=== PATIENT | male | born 1950 | race Caucasian/White ===

== ENCOUNTER 2019-03-25 17:03 | Inpatient (IN) | payer MEDICARE ==
[~2019-03-25] VITALS: Ht 182.9 cm; Wt 110.2 kg
--- NOTE | 2019-03-25 17:12 | NUR ---
PT IS A/OX4, BIB [id number] FROM [facility], C/O RESPIRATORY DISTRESS. PT BROUGHT IN BY RA ON BIPAP FOR RESPIRATORY SUPPORT. PT IS HYPOXIC, TACHYCARDIC, AND TACHYPNIC. PT SWITCHED TO HOSPITAL BIPAP PER ER MD ORDER. PT WAS ADMIN 1 SPRAY OF NITROGLYCERIN AND ALBUTEROL NEBU BY [facility] IN THE FIELD INTERACTIVE ACCOUNT MANAGER. 18G IV ACCESS IN RFA AND 20G IV ACCESS IN LAC IN PLACE BY [facility]. ER MD AT BEDSIDE FOR MSE.
--- NOTE | 2019-03-25 17:15 | NUR ---
Pt placed on BIPAP per MD orders. Pt placed on BIPAP 14/5, Rate-16, FIO2-100% Pt tolerating BIPAP settings well. BIPAP alarm parameters checked, on and audible. Will continue to monitor.
[2019-03-25] MEDS ORDERED: DILTIAZEM HCL 25 MG IV ONE (17:22)
[2019-03-25 17:26] LABS: BASOPHILS # (AUTO) 0.2 K/uL (0.0-8.0); EOSINOPHILS # (AUTO) 0.4 K/uL (0.0-0.7); EOSINOPHILS % (AUTO) 2.2 % (0.0-7.0); HEMATOCRIT 44.9 % (36.7-47.1); HEMOGLOBIN 14.6 g/dL (12.5-16.3); LYMPHOCYTES # (AUTO) 7.8 K/uL (20.0-40.0); LYMPHOCYTES % (AUTO) 42.5 % (20.5-51.5); MEAN CORPUSCULAR HEMOGLOBIN 28.9 uug (23.8-33.4); MEAN CORPUSCULAR HGB CONC 33 g/dL (32.5-36.3); MEAN CORPUSCULAR VOLUME 89.1 fL (73.0-96.2); MONOCYTES # (AUTO) 1.6 K/uL (2.0-10.0); MONOCYTES % (AUTO) 8.8 % (0.0-11.0); NEUTROPHILS # (AUTO) 8.3 K/uL (1.8-8.9); NEUTROPHILS % (AUTO) 45.5 % (38.5-71.5); PLATELET COUNT (AUTO) 281 K/uL (152-348); RED BLOOD CELL COUNT(AUTO) 5.04 MIL/uL (4.06-5.63); WHITE BLOOD COUNT (AUTO) 18.3 K/uL (3.6-10.2)
[2019-03-25 17:28] LABS: ABG BASE EXCESS -12.2 mmol/L; ABG PCO2 44.4 mmHg (35.0-45.0); ABG PH 7.174 (7.350-7.450); ABG PO2 121.9 mmHg (75.0-100.0); ABG SITE RIGHT RADIAL; ABG TOTAL HEMOGLOBIN 15.3 G/dL (13.5-18.0); COHb 4.6 % (0.5-1.5); MetHb 0.3 % (0.0-1.5); O2Hb 92.7 % (94.0-97.0); VENT MODE BIPAP
--- NOTE | 2019-03-25 17:29 | NUR ---
pt unable to provide past medical hx and med list at this point.
[2019-03-25] MEDS ORDERED: DILTIAZEM HCL 25 MG IV IV ONE (17:30)
[2019-03-25 17:32] LABS: CREATININE 1.7 mg/dL (0.6-1.3); POTASSIUM 3.9 mmol/L (3.5-5.1)
[2019-03-25 17:43] LABS: BILIRUBIN,DIRECT 0.2 mg/dL (0.0-0.2); BILIRUBIN,TOTAL 0.6 mg/dL (0.2-1.0); TOTAL PROTEIN, SERUM 7.2 g/dL (6.4-8.2)
--- NOTE | 2019-03-25 17:43 | NUR ---
pt wrote on a piece of paper that he takes 2 med for htn, 2 for cholesterol, diuretic and blood sugar. unable to provide moredetails at this point.
[2019-03-25] MEDS ORDERED: IV NORMAL SALINE 1000 ML BAG IV ONE ×2 (17:45→18:45)
[2019-03-25] MEDS: CEFTRIAXONE 1 G in IV DEXTROSE 5% 50 ML IV ONE ×2 (18:00→18:37)
[2019-03-25] MEDS ORDERED: IV NORMAL SALINE 250 ML IV ONE (18:00)
[2019-03-25] MEDS ORDERED: ASPIRIN 81 MG TAB.CHEW PO ONE (18:00)
[2019-03-25] MEDS ORDERED: IOHEXOL 350 100 ML INFUS..BTL ONE (18:00)
[2019-03-25] MEDS ORDERED: SWABABLE VALVE TRANSFER SET EA MC ONE (18:00)
[2019-03-25] MEDS ORDERED: ASPIRIN 300 MG RECTAL SUPP RC ONE (18:00)
[2019-03-25] MEDS ORDERED: ASPIRIN 81 MG TAB.CHEW ONE (18:01)
[2019-03-25] MEDS ORDERED: CEFTRIAXONE 1 G VIAL ONE (18:07)
[2019-03-25] MEDS ORDERED: INSULIN REGULAR, HUMAN 300 UNIT/3 ML VIAL ONE (18:10)
[2019-03-25] MEDS ORDERED: INSULIN REGULAR, HUMAN 300 UNIT/3 ML VIAL SQ ONE (18:15)
[2019-03-25] MEDS ORDERED: AZITHROMYCIN IV 500 MG in IV DEXTROSE 5% 250 ML IV ONE (18:45)
[2019-03-25] MEDS ORDERED: IV NORMAL SALINE 500 ML BAG IV ONE (18:45)
--- NOTE | 2019-03-25 19:01 | NUR ---
SHIFT REPORT GIVEN TO VANCE Headley RN.
--- NOTE | 2019-03-25 19:03 | NUR ---
ER SPEAKING W/ MD FROM [facility] RE PT'S ADMISSION.
[2019-03-25] MEDS ORDERED: AZITHROMYCIN 500 MG VIAL IV ONE (19:12)
--- NOTE | 2019-03-25 20:48 | NUR ---
Pt accepted for admission to CCU by Luis[facility], diagnosis Respiratory Failure.
--- NOTE | 2019-03-25 20:59 | NUR ---
Report given to Josselyn HAIRSPRING ASSEMBLER.
[2019-03-25] MEDS ORDERED: Z GUARD REMEDY PASTE 57 GM TUBE TOP PRN (21:15)
[2019-03-25] MEDS ORDERED: HYDROCODONE/APAP 5-325MG TABLET PO PRN (21:15)
[2019-03-25] MEDS ORDERED: ALBUTEROL SULFATE 1.25 MG/3 ML NEBU NEB PRN (21:15)
[2019-03-25] MEDS ORDERED: ACETAMINOPHEN 325 MG TABLET PO PRN (21:15)
[2019-03-25] MEDS ORDERED: ONDANSETRON 4 MG/2 ML VIAL IV PRN (21:15)
[2019-03-25] MEDS ORDERED: ZOLPIDEM 5 MG TABLET PO PRN (21:15)
[2019-03-25] MEDS ORDERED: DEXTROSE 50% 50 ML DISP.SYRIN IV PRN (21:15)
[2019-03-25] MEDS ORDERED: MAGNESIUM HYDROXIDE 30 ML LIQUID UDC PO PRN (21:15)
[2019-03-25] MEDS ORDERED: MORPHINE SULFATE 2 MG/1 ML DISP.SYRIN IV PRN (21:15)
[2019-03-25 21:29] VITALS: BP 92/65
--- NOTE | 2019-03-25 21:30 | NUR ---
ADMITTED PT ALERT & ORIENTED X3 FROM ER VIA [facility] W/ ADMITTING DX OF CHF, RESP FAILURE. PLACED ON BIPAP W/ SETTING OF IPAP-12/EPAP-5, RATE-16, FIO2 0F 100% W/ O2 SAT OF 100%. HEP LOCK INTACT & PATENT ON RFA & LAC. SOB NOTED ON INCREASED OF ACTIVITY. PLACED HOB HIGHLY ELEVATED.
[2019-03-25 22:00] VITALS: BP 96/55
[2019-03-25 22:30] VITALS: BP 91/58
--- NOTE | 2019-03-25 22:52 | NUR ---
ACCUCHECK DONE BS -269, COVERED W/ REGULAR INSULIN 6 UNITS SUBCU.
[2019-03-25] MEDS: INSULIN REGULAR, HUMAN 300 UNITS/3 ML VIAL SQ PRN (22:57)
[2019-03-25 23:00] VITALS: BP 82/56
[2019-03-26] VITALS (63 sets, daily range): BP systolic 56–144; BP diastolic 23–92
[2019-03-26 00:34] LABS: ABG BASE EXCESS -6.9 mmol/L; ABG HCO3 18.1 mmol/L; ABG PCO2 35.2 mmHg (35.0-45.0); ABG PO2 253.6 mmHg (75.0-100.0); ABG SITE RIGHT RADIAL; ABG TOTAL HEMOGLOBIN 15.4 G/dL (13.5-18.0); COHb 0.8 % (0.5-1.5); MetHb 0.2 % (0.0-1.5); O2Hb 98.6 % (94.0-97.0); VENT MODE BIPAP
[2019-03-26] MEDS ORDERED: NOREPINEPHRINE BITARTRATE 4 MG/4 ML VIAL IV ONE (02:16)
[2019-03-26] MEDS: NOREPINEPHRINE BITARTRATE 8 MG in IV DEXTROSE 5% 500 ML IV PRN (02:26)
--- NOTE | 2019-03-26 02:26 | NUR ---
LEVOPHED DRIP STARTED @ 5MCQ/MIN ON RFA IV SITE, BP-72/55.
--- NOTE | 2019-03-26 04:00 | NUR ---
AM CARE DONE. SOB NOTED ON INCREASED OF ACTIVITY.
[2019-03-26 05:23] LABS: BASOPHILS % (AUTO) 0.2 % (0.0-2.0); EOSINOPHILS % (AUTO) 0.1 % (0.0-7.0); HEMOGLOBIN 14.7 g/dL (12.5-16.3); LYMPHOCYTES # (AUTO) 1.6 K/uL (20.0-40.0); MEAN CORPUSCULAR HEMOGLOBIN 29.1 uug (23.8-33.4); MEAN CORPUSCULAR HGB CONC 33 g/dL (32.5-36.3); MEAN CORPUSCULAR VOLUME 87.4 fL (73.0-96.2); MONOCYTES # (AUTO) 1.7 K/uL (2.0-10.0); MONOCYTES % (AUTO) 8.5 % (0.0-11.0); NEUTROPHILS # (AUTO) 16.5 K/uL (1.8-8.9); NEUTROPHILS % (AUTO) 83.2 % (38.5-71.5); PLATELET COUNT (AUTO) 295 K/uL (152-348); RED BLOOD CELL COUNT(AUTO) 5.03 MIL/uL (4.06-5.63); WHITE BLOOD COUNT (AUTO) 19.9 K/uL (3.6-10.2)
[2019-03-26 05:31] LABS: BILIRUBIN,TOTAL 0.4 mg/dL (0.2-1.0); CREATININE 1.3 mg/dL (0.6-1.3); MAGNESIUM 2.2 mg/dL (1.8-2.4); PHOSPHOROUS 4.5 mg/dL (2.5-4.9); POTASSIUM 5.6 mmol/L (3.5-5.1); TOTAL PROTEIN, SERUM 7.1 g/dL (6.4-8.2)
[2019-03-26 05:36] LABS: THYROID STIMULATING HORMONE 1.571 mIU/mL (0.358-3.740)
--- NOTE | 2019-03-26 06:00 | NUR ---
REMAINS ON BIPAP. ON LEVOPHED DRIP @ 8MCQ/MIN.
--- NOTE | 2019-03-26 07:00 | NUR ---
recieved pt. from offgoing r.n. dx. resp. failure,c.h.f., sepsis, p.n.a. 68 yr. old male. on bi-pap machine. lying in bed with h.o.b. elevated 35 degrees. v.s.s. afebrile. asleep. arouses easily. alert. oriented times three. follows simple commands. speech clear. denies chest pains or dyspnea.V.S.S. saturation w.n.l.
[2019-03-26] MEDS: PANTOPRAZOLE SODIUM 40 MG TABLET.DR PO SCH (07:12)
[2019-03-26] MEDS: BLOOD SUGAR DIAGNOSTIC 1 EACH STRIP VI SCH ×4 (07:30→21:32)
--- NOTE | 2019-03-26 07:45 | NUR ---
RECEIVED PT ON CONTINUOUS BIPAP IPAP 15 EPAP 5 FIO2 80%. PT AWAKE AND COOPERATIVE. TOLERATING BIPAP AT THIS TIME. WILL CONTINUE TO MONITOR. NO DISTRESS NOTED.
[2019-03-26] MEDS: IPRATROPIUM BROMIDE 0.5 MG/2.5 ML NEBU NEB SCH ×5 (08:45→23:43)
[2019-03-26 09:15] LABS: ABG BASE EXCESS -6.6 mmol/L; ABG HCO3 16.2 mmol/L; ABG PCO2 26.4 mmHg (35.0-45.0); ABG PH 7.407 (7.350-7.450); ABG PO2 78.2 mmHg (75.0-100.0); ABG SITE RIGHT BRACHIAL; ABG TOTAL HEMOGLOBIN 15.1 G/dL (13.5-18.0); COHb 1.1 % (0.5-1.5); MetHb 0.2 % (0.0-1.5); O2Hb 94.8 % (94.0-97.0); VENT MODE BIPAP
--- NOTE | 2019-03-26 12:10 | NUR ---
dr. rendon called re; troponin, 0.185. stated, " I saw that ".
--- NOTE | 2019-03-26 12:30 | NUR ---
jeana tang inserted p.i.c.c. line to rt. arm. pt. tolerated procedure well. stat port. c.x.r. was ordered. " o.k. to use p.i.c.c. line, " as per cecilia orders.
[2019-03-26] MEDS: ASPIRIN 81 MG TAB.CHEW PO SCH (13:47)
[2019-03-26] MEDS: FUROSEMIDE 40 MG/4 ML VIAL IV SCH ×2 (13:48→21:26)
[2019-03-26] MEDS: INSULIN REGULAR, HUMAN 300 UNIT/3 ML VIAL SQ PRN ×2 (14:57→19:26)
[2019-03-26] MEDS: ATORVASTATIN 40 MG TABLET PO SCH ×2 (16:18→21:26)
[2019-03-26] MEDS ORDERED: CEFTRIAXONE 1 G in IV DEXTROSE 5% 50 ML IV SCH (19:00)
[2019-03-26] MEDS ORDERED: IV NORMAL SALINE 250 ML IV PRN (19:45)
[2019-03-26] MEDS ORDERED: AZITHROMYCIN IV 500 MG in IV DEXTROSE 5% 250 ML IV SCH (20:00)
[2019-03-26] MEDS ORDERED: ALBUTEROL SULFATE 1.25 MG/3 ML NEBU NEB SCH (21:15)
[2019-03-26] MEDS: INSULIN REGULAR, HUMAN 300 UNITS/3 ML VIAL SQ PRN (21:34)
[2019-03-27] VITALS (55 sets, daily range): BP systolic 62–137; BP diastolic 19–97
[2019-03-27] MEDS ORDERED: NOREPINEPHRINE BITARTRATE 4 MG/4 ML VIAL IV ONE (02:41)
[2019-03-27] MEDS: NOREPINEPHRINE BITARTRATE 8 MG in IV DEXTROSE 5% 500 ML IV PRN ×2 (02:42→16:35)
[2019-03-27] MEDS: IPRATROPIUM BROMIDE 0.5 MG/2.5 ML NEBU NEB SCH ×6 (03:07→23:23)
[2019-03-27 04:58] LABS: BASOPHILS # (AUTO) 0.1 K/uL (0.0-8.0); BASOPHILS % (AUTO) 0.2 % (0.0-2.0); HEMATOCRIT 41.2 % (36.7-47.1); HEMOGLOBIN 13.5 g/dL (12.5-16.3); LYMPHOCYTES # (AUTO) 1.7 K/uL (20.0-40.0); LYMPHOCYTES % (AUTO) 7.6 % (20.5-51.5); MEAN CORPUSCULAR HEMOGLOBIN 28.6 uug (23.8-33.4); MEAN CORPUSCULAR HGB CONC 33 g/dL (32.5-36.3); MEAN CORPUSCULAR VOLUME 87.5 fL (73.0-96.2); MONOCYTES # (AUTO) 2.3 K/uL (2.0-10.0); NEUTROPHILS # (AUTO) 18.9 K/uL (1.8-8.9); NEUTROPHILS % (AUTO) 82.2 % (38.5-71.5); PLATELET COUNT (AUTO) 236 K/uL (152-348); RED BLOOD CELL COUNT(AUTO) 4.71 MIL/uL (4.06-5.63)
[2019-03-27 05:12] LABS: CREATININE 1.2 mg/dL (0.6-1.3); PHOSPHOROUS 2.7 mg/dL (2.5-4.9); POTASSIUM 4.6 mmol/L (3.5-5.1)
[2019-03-27 05:30] LABS: BAND % (MANUAL) 5 % (0-10); EOSINOPHILS % (MANUAL) 1 % (0-8); LYMPHOCYTES % (MANUAL) 6 % (20-40); MONOCYTES % (MANUAL) 10 % (2-10); NEUTROPHILS % (MANUAL) 78 % (42-75)
[2019-03-27] MEDS ORDERED: METOLAZONE 5 MG TABLET PO ONE (08:15)
[2019-03-27] MEDS: BLOOD SUGAR DIAGNOSTIC 1 EACH STRIP VI SCH ×4 (08:22→21:19)
[2019-03-27 08:36] LABS: ABG PCO2 29.6 mmHg (35.0-45.0); ABG PH 7.426 (7.350-7.450); ABG PO2 95.3 mmHg (75.0-100.0); ABG SITE RIGHT RADIAL; ABG TOTAL HEMOGLOBIN 14.3 G/dL (13.5-18.0); COHb 1.2 % (0.5-1.5); MetHb 0.2 % (0.0-1.5); O2Hb 96.1 % (94.0-97.0); VENT MODE BIPAP; VT, ABG 1020 mL
[2019-03-27] MEDS: INSULIN REGULAR, HUMAN 300 UNIT/3 ML VIAL SQ PRN ×3 (08:41→17:37)
[2019-03-27] MEDS: ASPIRIN 81 MG TAB.CHEW PO SCH (08:54)
[2019-03-27] MEDS: FUROSEMIDE 40 MG/4 ML VIAL IV SCH ×3 (08:54→21:29)
[2019-03-27] MEDS: PANTOPRAZOLE SODIUM 40 MG TABLET.DR PO SCH (08:55)
--- NOTE | 2019-03-27 09:32 | NUR ---
CLINICAL PHARMACY NOTE:VANCOMYCIN DOSIN Request for vancomycin dosing on 68 y/o male 182.88 cm 110.2 kg for pneumonia temp 97.9 BUN 28 Scr 1.2 WBC 23 bands 5 also started on Zosyn Start vancomycin 1500mg ivpb [id number] estimated trough 15.8. Will order trough level prior to 4th dose. Will continue to monitor
[2019-03-27 10:17] LABS: *BILIRUBIN,URIN NEGATIVE (NEGATIVE); *BLOOD, URINE NEGATIVE (NEGATIVE); *CLARITY,URINE CLEAR (CLEAR); *COLOR,URINE YELLOW (YELLOW); *KETONES,URINE TRACE (NEGATIVE); *UROBILINOGEN,URINE 0.2 E.U./dl (NORMAL); LEUKOCYTE ESTERASE ,URINE NEGATIVE (NEGATIVE); NITRITE, URINE NEGATIVE (NEGATIVE); PH,URINE 5.5 (5.0-8.0); UGLUCOSE NEGATIVE (NEGATIVE)
[2019-03-27] MEDS: VANCOMYCIN IV 1,500 MG in IV DEXTROSE 5% 500 ML IV SCH ×2 (10:21→23:56)
[2019-03-27 10:26] LABS: MUCUS,URINE MODERATE /LPF (0-FEW); SQUAMOUS EPITHELIAL CELL,UR NONE SEEN /HPF (NONE SEEN)
[2019-03-27 10:27] LABS: BACTERIA,URINE FEW /HPF (NONE SEEN); RBC,URINE 0-3 /HPF (0-3); WBC,URINE 0-3 /HPF (0-3)
--- NOTE | 2019-03-27 11:00 | NUR ---
SEEN AND EXAMINED BY DR GREENWOOD AND DR MUNOZ WITH NEWORDERS.
[2019-03-27] MEDS ORDERED: PIPERACILLIN/TAZOBACTAM/D5W 50 ML IV SCH (12:00)
[2019-03-27] MEDS: PIPERACILLIN/TAZOBACTAM/D5W 3.375 G in PREMIXED 1 EACH IV SCH ×2 (12:41→20:21)
[2019-03-27] MEDS ORDERED: MIDAZOLAM HCL 2 MG/2 ML VIAL IV PRN (13:00)
--- NOTE | 2019-03-27 13:10 | NUR ---
PT WAS EXPLAINED BY MD THE NEED FOR INTUBATION AT THIS TIME. PT AGREED. INTUBATED BY DR BLAS WITH GOOD SUCCESS. [id number] 4MG ANDSUCS 100MG SLOW IVP GIVEN ORDERED FOR THE INTUBATION.
[2019-03-27] MEDS ORDERED: AMIODARONE HCL IV 150 MG in IV DEXTROSE 5% 100 ML IV ONE (13:30)
[2019-03-27] MEDS: PROPOFOL 100 ML IV PRN ×4 (13:30→21:13)
[2019-03-27] MEDS ORDERED: AMIODARONE HCL IV 900 MG in IV DEXTROSE 5% 482 ML IV PRN ×2 (13:30→13:45)
--- NOTE | 2019-03-27 13:30 | NUR ---
PROPOFOL DRIP STARTED AT 50MCG/MIN ORDERED FOR SEDATION.
[2019-03-27] MEDS ORDERED: MORPHINE SULFATE 4 MG/1 ML DISP.SYRIN IV PRN (13:45)
--- NOTE | 2019-03-27 14:00 | NUR ---
HR WENT UO 160B/MIN. AFIB.DR MUNOZ CARDIOVERTED PT WITH 150JOULES. STILL AFIB FAST RESPONSE. STARTED ON AMIODARONE DRIP AT 1MCG.MIN WITH A BOLUS OF 150MG SLOW IVPAS ORDERED. VENT SETTING OF AC-18, CHZ8625%, PEEP-8, VT-600. PCXR DONE POST INTUBATION.
[2019-03-27 14:11] LABS: ABG BASE EXCESS -9.3 mmol/L; ABG PCO2 50.4 mmHg (35.0-45.0); ABG PH 7.194 (7.350-7.450); ABG PO2 102.8 mmHg (75.0-100.0); ABG SITE LEFT BRACHIAL; ABG TOTAL HEMOGLOBIN 14.4 G/dL (13.5-18.0); COHb 1.5 % (0.5-1.5); MetHb 0.2 % (0.0-1.5); O2Hb 95.2 % (94.0-97.0); VENT MODE VENT - A/C; VT, ABG 600 mL
--- NOTE | 2019-03-27 14:30 | NUR ---
LASIX 80MG SLOW IVP GIVEN ORDERED. INSERTED A FOLEYCATHETER FR16 WITHOUT ANY DIFFICULTIES. DRAINING DARK EDY URINE.
[2019-03-27] MEDS ORDERED: HEPARIN/D5W DRIP 500 ML IV PRN (15:15)
[2019-03-27] MEDS ORDERED: HEPARIN SODIUM,PORCINE 5,000 UNITS/ML VIAL IV PRN (15:30)
[2019-03-27] MEDS ORDERED: HEPARIN SODIUM,PORCINE 5,000 UNITS/ML VIAL IV ONE (15:30)
--- NOTE | 2019-03-27 15:30 | NUR ---
NOTIFIED DR GREENWOOD WITH ABG RESULT POST INTUBATION. VENT CANGES ORDERS AC-24, PEEP-10, VT-650, FIO2-80%. O2SAT IS 100%
[2019-03-27] MEDS: HEPARIN/D5W DRIP 500 ML IV PRN (16:38)
[2019-03-27] MEDS ORDERED: SUCCINYLCHOLINE CHLORIDE 200 MG/10 ML VIAL MC ONE (17:00)
--- NOTE | 2019-03-27 17:00 | NUR ---
HEPARIN BOLUS 5,OOOU GIVEN SLOW IVP ORDERED. FOLLOWED BU HEPARIN DRIP AT 1200UNITS VIA PICC LINE ORDERED. PT IS SEDATED BUT AROUSABLE.
--- NOTE | 2019-03-27 18:14 | NUR ---
PT IS DOING WELL ON BIPAP VENT SATURATING 99% AND TOLERATING HIS BRATHING TREATMENTS WELL. ATTEMPTED TO WEAN OF FROM BIPAP BUT PATIENT REFUSED AND SAID THAT HE CAN'T BREATH. DR. GREENWOOD CAME I AND SAW THE PATIENTS CONDITION AND DECIDED TO INTUBATE THE PATIENT DUE TO HIS HEART CONDITION. HE WAS INTUBATED WITH ET TUBE 7.5, SECURED AT 23 CM AT MID LIP. PLACED ON VENT MARQUEZ WITH SETTINGS OF AC 18, VT 600, PEEP 8 AND FIO2 100%. ABG WAS DRAWN POST ONE HOUR AND RESULT WAS CALLED BY YUSUF SCHUMACHER TO DR. GREENWOOD. HE GAVE NEW ORDERS: AC 24, VT 650, PEEP 10 AND O2 80%.
[2019-03-27] MEDS: ATORVASTATIN 40 MG TABLET PO SCH (21:00)
[2019-03-27] MEDS: INSULIN REGULAR, HUMAN 300 UNITS/3 ML VIAL SQ PRN (21:22)
[2019-03-27] MEDS: NOREPINEPHRINE BITARTRATE 16 MG in IV DEXTROSE 5% 500 ML IV PRN (22:01)
--- NOTE | 2019-03-27 23:20 | NUR ---
Noted Heparin 5,400 units / Heparin protocol: duplicate order.
[2019-03-27] MEDS ORDERED: HEPARIN SODIUM,PORCINE 10,000 UNITS/10 ML VIAL IVP ONE (23:30)
--- NOTE | 2019-03-27 23:31 | NUR ---
Patient was received orally intubated on mechanical ventilation. He is on the Mendoza ventilator with ordered vent settings of AC 24, vt 650, +10, 80% fIO2. 7.5 Ettube, ~23cm lipline. He tolerated inline treatments well, no adverse reactions noted. Suctioned small amounts of pink tinged secretions. Oral care rendered without complications. Alarms assessed and are on/audible. Will continue to monitor throughout shift.
[2019-03-28] VITALS (72 sets, daily range): BP systolic 87–134; BP diastolic 58–103
[2019-03-28] MEDS: PROPOFOL 100 ML IV PRN ×5 (02:10→18:15)
[2019-03-28] MEDS: PIPERACILLIN/TAZOBACTAM/D5W 3.375 G in PREMIXED 1 EACH IV SCH ×2 (03:16→12:15)
[2019-03-28] MEDS: IPRATROPIUM BROMIDE 0.5 MG/2.5 ML NEBU NEB SCH ×4 (03:22→15:28)
[2019-03-28 05:20] LABS: BASOPHILS # (AUTO) 0.2 K/uL (0.0-8.0); BASOPHILS % (AUTO) 0.7 % (0.0-2.0); EOSINOPHILS % (AUTO) 0.1 % (0.0-7.0); HEMATOCRIT 38.5 % (36.7-47.1); HEMOGLOBIN 12.8 g/dL (12.5-16.3); LYMPHOCYTES # (AUTO) 1.9 K/uL (20.0-40.0); LYMPHOCYTES % (AUTO) 8.9 % (20.5-51.5); MEAN CORPUSCULAR HEMOGLOBIN 28.9 uug (23.8-33.4); MEAN CORPUSCULAR HGB CONC 33 g/dL (32.5-36.3); MEAN CORPUSCULAR VOLUME 86.8 fL (73.0-96.2); MONOCYTES # (AUTO) 1.8 K/uL (2.0-10.0); MONOCYTES % (AUTO) 8.6 % (0.0-11.0); NEUTROPHILS # (AUTO) 17.4 K/uL (1.8-8.9); NEUTROPHILS % (AUTO) 81.7 % (38.5-71.5); PLATELET COUNT (AUTO) 196 K/uL (152-348); RED BLOOD CELL COUNT(AUTO) 4.43 MIL/uL (4.06-5.63); WHITE BLOOD COUNT (AUTO) 21.3 K/uL (3.6-10.2)
[2019-03-28 05:21] LABS: CREATININE 1.6 mg/dL (0.6-1.3); MAGNESIUM 2.1 mg/dL (1.8-2.4); PHOSPHOROUS 2.9 mg/dL (2.5-4.9); POTASSIUM 4.3 mmol/L (3.5-5.1)
--- NOTE | 2019-03-28 07:15 | NUR ---
PATIENT RECEIVED ORALLY INTUBATED WITH A SIZE 7.5 ETT, SECURED AT APPROXIMATELY 23CM AT THE LIP WITH AN ANCHOR-FAST. PATIENT IS ON A VENT WITH SETTINGS OF AC24, VT650, +10, 80% FIO2. VENT IS PLUGGED INTO RED EMERGENCY OUTLET. VENT ALARMS ARE ON AND AUDIBLE. TX TOLERATED WELL, NO ADVERSE REACTIONS NOTED. SX'D PRN. AMBUBAG AT BEDSIDE. CHANGED ETT LOCATION Q2HRS. WILL CONTINUE TO MONITOR AND REPORT ANY CHANGES.
[2019-03-28] MEDS: BLOOD SUGAR DIAGNOSTIC 1 EACH STRIP VI SCH ×3 (07:45→16:31)
[2019-03-28] MEDS: FUROSEMIDE 40 MG/4 ML VIAL IV SCH (07:50)
[2019-03-28] MEDS: INSULIN REGULAR, HUMAN 300 UNIT/3 ML VIAL SQ PRN ×3 (07:59→16:33)
[2019-03-28] MEDS ORDERED: FAMOTIDINE. 20 MG/2 ML VIAL IV SCH (09:00)
[2019-03-28 09:06] LABS: ABG BASE EXCESS -0.6 mmol/L; ABG HCO3 24.6 mmol/L; ABG PCO2 42.5 mmHg (35.0-45.0); ABG PO2 45.4 mmHg (75.0-100.0); ABG SITE RIGHT RADIAL; ABG TOTAL HEMOGLOBIN 14.1 G/dL (13.5-18.0); COHb 1.6 % (0.5-1.5); MetHb 0.4 % (0.0-1.5); O2Hb 78.1 % (94.0-97.0); VENT MODE VENT - A/C; VT, ABG 650 mL
--- NOTE | 2019-03-28 09:10 | NUR ---
INCREASED FIO2 TO 100% DUE TO LOW O2 ON ABG.
--- NOTE | 2019-03-28 09:20 | NUR ---
ABG results in and notified to Dr. Reece FIO2 increased to 100% by RT. aware.
--- NOTE | 2019-03-28 09:45 | NUR ---
Pulmonary services Dr. Reece in the unit to examine patient, full report given no new orders received.
--- NOTE | 2019-03-28 10:30 | NUR ---
Cardiology services, Dr. Waller in the unit to examine patient full report given. informed about pending transfer.
--- NOTE | 2019-03-28 11:00 | NUR ---
As recommended NG-T advanced 4cm's. As per Radiologist no need to repeat x-ray. and Ok to use it after advancement.
--- NOTE | 2019-03-28 11:15 | NUR ---
A call from [facility] and spoke with Dr. Donahue. full report given awaiting call back with transfer information.
[2019-03-28] MEDS: HEPARIN/D5W DRIP 500 ML IV PRN (11:24)
[2019-03-28] MEDS: ASPIRIN 81 MG TAB.CHEW PO SCH (12:05)
[2019-03-28] MEDS: METOLAZONE 5 MG TABLET PO SCH ×2 (12:05→16:36)
--- NOTE | 2019-03-28 12:58 | NUR ---
RT at bedside and FIO2 down to 80% at this time. PT's saturation between 95-97%.
[2019-03-28] MEDS ORDERED: FUROSEMIDE 40 MG/4 ML VIAL IV SCH (14:00)
[2019-03-28] MEDS: AMIODARONE HCL IV 900 MG in IV DEXTROSE 5% 482 ML IV PRN ×2 (14:54→17:56)
--- NOTE | 2019-03-28 15:20 | NUR ---
Telephone report given to Blair solder making laborer R.N. also to solder making laborer receiving Dr. recinos ABG's, creatinine, and current drips running reported.
--- NOTE | 2019-03-28 15:32 | NUR ---
CLINICAL PHARMACY NOTE:VANCOMYCIN DOSIN To continue vancomycin dosing on 68 y/o male 182.88 cm 110.2 kg for pneumonia temp 98.5 BUN 32 Scr 1.6 (yesterday 1.2) WBC 21.3 random today at 1345: 13.3 Assessment/Plan Due to decrease in renal function, changed from regimen to dose per level until stable. random today today early afternoon was 13.3. Dosed 1500mg x 1 for today and reordered next random tomorrow with am labs. Will check level and re-dose as needed. If renal function were to stabilize, will consider restarting regimen. Will follow
--- NOTE | 2019-03-28 15:34 | NUR ---
Telephone report given to Arnol Peres in the ICU department at [facility]. all system reviewed R.N. notified of schedule procedure at their cardiac general production laborer. All running drips discussed with Katarina. Current vent setting discussed including latest ABG results.
[2019-03-28] MEDS ORDERED: VANCOMYCIN IV 1,500 MG in IV DEXTROSE 5% 500 ML IV ONE (16:00)
--- NOTE | 2019-03-28 16:20 | NUR ---
Telephone report given to Arnol Glaser in the ICU department at [facility]. all system reviewed R.Lily. notified of cardiac cath procedure needed. All running drips discussed with Katarina. Current vent setting discussed including latest ABG results. As informed by Jailyn admitting physician at [facility] will be Dr. Johnson. with case planner bed board been [facility].
--- NOTE | 2019-03-28 17:30 | NUR ---
Ambulance services, in the unit to transfer patient to [facility]. report given to Arnol Pinto. Pt's vital stable 100/56, Hr of 79, RR 24, FIo2 100%.
[2019-03-28] MEDS: NOREPINEPHRINE BITARTRATE 16 MG in IV DEXTROSE 5% 500 ML IV PRN (17:58)
--- NOTE | 2019-03-28 18:44 | NUR ---
At this time patient taken via ambulance to [facility]. On propofol with adequate sedation, levophed drip and sbp of HR of 76, sbp of 91/59, 95%, rr 24. heparin at 1450 units/hr. Amiodarone running at 0.5mg/hr. On ventilator with no changes on setting. A/C 24, FIO2 80%, Peep +10. Tv. 650. PIcc line RUE patent.
== END 2019-03-28 18:45 | disposition short-term general hospital (02) | DRG 871 ==
LOC: ER 17:05 → CCU 21:04
PROVIDERS: ADMIT Nurse Practitioner Acute Care; ATTEND Nurse Practitioner Acute Care
PROC: 5A09457 Assistance with Respiratory Ventilation, 24-96 Consecutive Hours, Continuous Positive Airway Pressure (ICD-10-PCS; 2019-03-25)
PROC: 02HV33Z Insertion of Infusion Device into Superior Vena Cava, Percutaneous Approach (ICD-10-PCS; 2019-03-26)
PROC: 5A1945Z Respiratory Ventilation, 24-96 Consecutive Hours (ICD-10-PCS; principal; 2019-03-27)
PROC: 0BH17EZ Insertion of Endotracheal Airway into Trachea, Via Natural or Artificial Opening (ICD-10-PCS; 2019-03-27)
DX: A41.9 Sepsis, unspecified organism (principal); J18.9 Pneumonia, unspecified organism; J96.01 Acute respiratory failure with hypoxia; J96.02 Acute respiratory failure with hypercapnia; R57.0 Cardiogenic shock; I51.1 Rupture of chordae tendineae, not elsewhere classified; I21.A1 Myocardial infarction type 2; N17.0 Acute kidney failure with tubular necrosis; E44.0 Moderate protein-calorie malnutrition; E87.4 Mixed disorder of acid-base balance; J98.11 Atelectasis; R65.20 Severe sepsis without septic shock; E78.5 Hyperlipidemia, unspecified; E66.9 Obesity, unspecified; E11.65 Type 2 diabetes mellitus with hyperglycemia; I48.0 Paroxysmal atrial fibrillation; Z68.32 Body mass index [BMI] 32.0-32.9, adult; Z87.891 Personal history of nicotine dependence; I25.2 Old myocardial infarction; I11.0 Hypertensive heart disease with heart failure; I50.89 Other heart failure
CPT/HCPCS: 36415; 36600; 70030-TC; 71045; 71275; 83605; 83735; 84100; 84443; 85025; 85730; 87040; 87070; 87086; 93005; 93307; 94003; 94640; 94660; A4663; G0378; J0282; J0330; J0456; J0696; J1644; J1815; J1940; J2250; J2405; J2543; J3370; J3490; J3590; J7030; J7040; J7050; J7060; Q9967